=== PATIENT | male | born 1965 | race Caucasian/White ===

== ENCOUNTER 2016-04-10 14:01 | Outpatient (CLI) | payer MEDICARE, OTHER ==
[2013-09-06 17:31] VITALS: BP 133/78
[2016-04-10 14:16] LABS: BASOPHILS % 0.4 (0.0-1.5); EOSINOPHILS % 2.6 % (0.0-6.8); LYMPHOCYTES # 2.1 # k/uL (0.6-4.0); MEAN CORPUSCULAR HEMOGLOBIN 30.8 pg (28.0-34.0); MONOCYTES # 0.5 # k/uL (0.0-0.9); MONOCYTES % 5.4 % (0.0-11.0); NEUTROPHILS # 6.7 # k/uL (1.4-7.7)
== END 2016-04-10 14:02 ==
LOC: LAB 14:01
PROVIDERS: ATTEND Family Medicine
DX: E53.8 Deficiency of other specified B group vitamins (principal)
CPT/HCPCS: 36415; 82607; 85025

== ENCOUNTER → 2016-09-26 | Outpatient (CLI) | payer MEDICARE, OTHER ==
[2013-09-06 17:31] VITALS: BP 133/78
[2016-09-26 12:07] LABS: eGFR (African) > 60; eGFR (Non-African) > 60
== END ==
LOC: LAB 11:19
PROVIDERS: ATTEND Family Medicine
DX: N52.01 Erectile dysfunction due to arterial insufficiency (principal); E78.5 Hyperlipidemia, unspecified
CPT/HCPCS: 36415; 80053; 80061; 84403

== ENCOUNTER 2017-07-14 14:18 | Outpatient (CLI) | payer MEDICARE, OTHER ==
[2013-09-06 17:31] VITALS: BP 133/78
--- NOTE | 2017-07-14 16:42 | Diagnostic Imaging Report ---
[facility] [employer] [id number] [facility] [address] [id number] Report Submission Date: Jul 14, 2017 2:43:17 PM CDT Patient Study Name: SHAYNA RIVERS Date: Jul 14, 2017 2:20:50 PM CDT Modality Type: DX Gender: M Description: LOWER EXTREMITY : 63 Institution: [facility] Physician: [employer] Examination: Plain film right knee History: MEDIAL KNEE PAIN W/O KNOWN INJURY X SEVERAL YEARS (Hx) Findings: 3 views of the right knee demonstrates normal cortical margins. No fracture. No dislocation. No joint effusion. No soft tissue irregularity. Impression: No acute osseous abnormality Electronically signed on Jul 14, 2017 2:43:17 PM CDT by: Dariel VENCES
== END 2017-07-14 14:20 ==
LOC: RAD 14:18
PROVIDERS: ATTEND Family Medicine
DX: M25.561 Pain in right knee (principal)
CPT/HCPCS: 73562

== ENCOUNTER 2017-08-19 10:51 | Outpatient (CLI) | payer MEDICARE, OTHER ==
[2013-09-06 17:31] VITALS: BP 133/78
== END 2017-08-19 10:53 ==
LOC: RT 10:51
PROVIDERS: ATTEND Family Medicine
DX: J43.1 Panlobular emphysema (principal)
CPT/HCPCS: 94010

== ENCOUNTER 2017-09-15 07:04 | Day surgery (SDC) | payer MEDICARE, OTHER ==
[2013-09-06 17:31] VITALS: BP 133/78
--- NOTE | 2017-09-15 10:31 | GI Report ---
REFERRING PHYSICIAN: Dr. Beny Lr HEBREW CANTOR: Navneet Porras MD PROCEDURE MEDICATION: Propofol as per anesthesia. INDICATIONS: This 52-year-old man is referred for a screening colonoscopy. This is his first colonoscopy. There may be a family history of colon cancer in his father but he is not completely sure. Patient does have a number of medical issues. He has COPD. He still smokes. He has had a previous CVA. PROCEDURE PERFORMED: Colonoscopy. PROCEDURE: An Olympus video colonoscope was advanced to the rectum. The prep was poor, though we were able to slowly advance all the way to the cecum. The appendiceal orifice and ileocecal valve were identified. On slow withdrawal, the cecum, ascending colon, and transverse colon with no obvious intraluminal lesions noted. The descending colon and sigmoid, again, some redundancy. No obvious intraluminal lesions were noted. Retroflexion of the rectum, no obvious lesions noted. FINDINGS: Poor prep, so small polyps could be missed, but there was no obvious lesion noted with the prep to the cecum. RECOMMENDATIONS: 1. A high-fiber diet. 2. Since the prep was poor, recommend re-looking at his colon in 5 years and he needs to be on a 2-day prep. cc: Dr. Beny VENCES
[2017-09-15] MEDS ORDERED: 0.9 % SODIUM CHLORIDE 500 ML IV ONE (12:00)
[2017-09-15] MEDS ORDERED: LACTATED RINGERS 1,000 ML IV.SOLN IV ONE (12:00)
[2017-09-15] MEDS ORDERED: PROPOFOL 200 MG/20 ML VIAL IV ONE (12:00)
== END 2017-09-15 07:06 ==
LOC: OPSURG 07:04
PROVIDERS: ATTEND Internal Medicine Gastroenterology
DX: Z12.11 Encounter for screening for malignant neoplasm of colon (principal); J44.9 Chronic obstructive pulmonary disease, unspecified; F17.210 Nicotine dependence, cigarettes, uncomplicated
CPT/HCPCS: J2704; J7060; J7120; G0105; S1016

== ENCOUNTER 2018-01-21 10:26 | Outpatient (CLI) | payer MEDICARE, OTHER ==
[2013-09-06 17:31] VITALS: BP 133/78
[2018-01-21 17:38] LABS: eGFR (Non-African) > 60
== END 2018-01-21 10:28 ==
LOC: LAB 10:26
PROVIDERS: ATTEND Family Medicine
DX: F41.1 Generalized anxiety disorder (principal); E78.5 Hyperlipidemia, unspecified
CPT/HCPCS: 36415; 80053; 80061